=== PATIENT | female | born 1990 | race Asian ===

== ENCOUNTER 2017-11-11 18:32 | Emergency (ER) | payer OTHER | END 2017-11-11 21:40 | disposition home or self-care (01) | LOC: FTE 18:32 | DX: S61.411A Laceration without foreign body of right hand, initial encounter (principal); F17.210 Nicotine dependence, cigarettes, uncomplicated; W25.XXXA Contact with sharp glass, initial encounter; Y92.9 Unspecified place or not applicable | CPT/HCPCS: 12001; 73130-RT; 99283-25 ==